=== PATIENT | female | born 1970 | race Caucasian/White ===

== ENCOUNTER → 2020-11-04 09:38 | Outpatient (BNVA) | payer OTHER, SELFPAY | PROVIDERS: Family Provider Nurse Practitioner Family; Visit Provider Surgery | DX: Z20.822 Contact with and (suspected) exposure to COVID-19 (principal); Z11.52 Encounter for screening for COVID-19 | CPT/HCPCS: 87635 ==

== ENCOUNTER 2020-11-10 10:16 | Day surgery (SDC) | payer OTHER, SELFPAY ==
[2020-11-09 10:03] VITALS: BMI 24.0
--- NOTE | 2020-11-10 10:41 | ANES.PREANE2 ---
Pre-Anesthetic Assessment Pre-Anesthetic Assessment: Height/Weight: Height 1.63 m Weight 63.503 kg Proposed Procedure: Operation Date: 11/10/20 12:00 Proposed Procedures p Colonoscopy 00805 Z80.0(Not Applicable) - Paulie Rhoades MD Was Beta Veena taken within 24 hours: N/A Was Clonidine taken within 24 hours: N/A Social: Social History: No alcohol and No tobacco Exam: Pre-Anes Outpt Exam: alert, oriented x 3, clear to auscultation bilaterally and regular rate & rhythm Airway: Submandibular: WNL Cervical ROM: WNL MP: 2 Dentition: Full History/ROS: No significant history except as noted Anesthetic Plan: ASA status: 1 Anesthesia: MAC Risk of > 500 ml blood loss (7ml/kg in children): No Data Anesthesia Cardiac Studies: No Data to Display
[2020-11-10 10:51] VITALS: BP 111/71; PULSE 74; RESP 18; TEMP 36.3; O2SAT 97
[2020-11-10] MEDS: sodium chloride 0.9% 1,000 ML 30 ML IV (11:14)
--- NOTE | 2020-11-10 11:22 | W.PM.OPSFHP ---
Same Day Surgery H&P Indication for Procedure/HPI DATE OF PROCEDURE: November 10, 2020 CHIEF COMPLAINT/INDICATIONFOR SURGICAL PROCEDURE: screening PREOP DIAGNOSIS: screening colonoscopy PLANNED PROCEDRUE: Operation Date: 11/10/20 12:00 Proposed Procedures p Colonoscopy 06929 Z80.0(Not Applicable) - Paulie Rhoades MD Medications/Allergies* Home Medications Medication Instructions Recorded Confirmed Type Lactobacillus acidophilus 1,000 mmu cells PO DAILY 11/08/20 11/10/20 History [Acidophilus] ascorbic acid (vitamin C) [Vitamin 500 mg PO DAILY 11/08/20 11/10/20 History C] calcium phos,dibas-vitamin D3 2 tab PO DAILY 11/08/20 11/10/20 History [Vitamin D (with calcium)] ibuprofen 800 mg PO TID 11/08/20 11/10/20 History zinc 10 mg PO DAILY 11/08/20 11/10/20 History Allergies/Adverse Reactions Allergy/AdvReac Type Severity Reaction Status Date / Time Penicillins Allergy Unknown Verified 10/25/20 09:56 Current Medications: Generic Name Dose Route Start Last Admin Trade Name Freq PRN Reason Stop Dose Admin Sodium Chloride 1,000 mls @ 30 mls/hr 11/10/20 10:45 11/10/20 11:14 Sodium Chloride 0.9% IV 11/11/20 10:44 30 mls/hr .Q24H DUC Administration Pertinent Exam Findings alert, oriented x 3 and regular rate & rhythm Recommendations Surgery/Procedure today Coding Level of Care Code Acute [place] [employer] Operator for Kadi Dennis
[2020-11-10 13:26] VITALS: BP 106/70; PULSE 81; RESP 14; TEMP 36.1; O2SAT 98
[2020-11-10 13:38] VITALS: BP 110/70; PULSE 78; RESP 18; O2SAT 97
--- NOTE | 2020-11-10 14:41 | ANE.PACU2 ---
Inpatient post-anesthesia follow up: Airway intact: Yes Vital signs: Temperature 97 F Pulse Rate 78 Respiratory Rate 18 Blood Pressure 110/70 Pulse Oximetry 97 Oxygen Delivery Me thod Room Air Oxygen Flow Rate 3 Fraction of Inspir ed Oxygen Hydration adequate: Yes Nausea and vomiting: No Pain level: 1 Mental status: Baseline
== END 2020-11-10 13:50 | disposition home or self-care (01) ==
PROVIDERS: Visit Provider Surgery
PROC: 0DJD8ZZ Inspection of Lower Intestinal Tract, Via Natural or Artificial Opening Endoscopic (ICD-10-PCS; CPT 45378; principal; 2020-11-10 12:00)
DX: Z12.11 Encounter for screening for malignant neoplasm of colon (principal); Z80.0 Family history of malignant neoplasm of digestive organs; K57.30 Diverticulosis of large intestine without perforation or abscess without bleeding
CPT/HCPCS: 45378; 96360; 96361; J2704; J7030

== ENCOUNTER → 2020-11-15 08:47 | Outpatient (BNVA) | payer OTHER, SELFPAY | PROVIDERS: Visit Provider Nurse Practitioner | DX: Z20.822 Contact with and (suspected) exposure to COVID-19 (principal); R05 Cough | CPT/HCPCS: 87635 ==

== ENCOUNTER 2021-05-30 12:11 | Outpatient (CLI) | payer OTHER, SELFPAY ==
--- NOTE | 2021-05-30 12:19 | XR_ITS ---
WS: [email or web address] Lumbar spine, 3 views, 05/30/2021 Clinical Data: M54.9 - Dorsalgia, unspecified, MOB Comparison: None. Findings: No compression fractures or subluxation is seen. No disc space narrowing is seen. The transverse proc esses and SI joints are normal. There is a slight levoscoliosis. XR/XR lumbar spine 2-3V* [id number] Impression: Minimal levoscoliosis of the lumbar spine.
--- NOTE | 2021-05-30 12:19 | XR_ITS ---
WS: [email or web address] Thoracic spine, 3 views, 05/30/2021 Clinical Data: M54.9 - Dorsalgia, unspecified, MOB Comparison: None. Findings: No compression fractures are seen. The disc heights are normal. There is a slight dextroscoliosis. The paravertebral regions are normal. XR/XR thoracic spine 3V* [id number] Impression: Minimal dextroscoliosis of the thoracic spine.
== END 2021-05-30 12:12 | disposition home or self-care (01) ==
LOC: RAD 12:15
PROVIDERS: PCP Nurse Practitioner; Visit Provider Nurse Practitioner
DX: M41.84 Other forms of scoliosis, thoracic region (principal); M41.86 Other forms of scoliosis, lumbar region
CPT/HCPCS: 72072; 72100

== ENCOUNTER → 2021-08-22 08:40 | Outpatient (BNVA) | payer OTHER, SELFPAY | PROVIDERS: PCP Nurse Practitioner; Visit Provider Nurse Practitioner | DX: M79.10 Myalgia, unspecified site (principal); R42 Dizziness and giddiness | CPT/HCPCS: 80053 ==

== ENCOUNTER 2021-09-16 13:07 | Outpatient (CLI) | payer OTHER, SELFPAY ==
--- NOTE | 2021-09-16 14:00 | MR_ITS ---
WS: [id number] MRI LUMBAR SPINE NONCONTRAST HISTORY: M54.9 - Dorsalgia, unspecified, trauma October 2020. Low back pain down LEFT leg. COMPARISON: None available. TECHNIQUE: Sagittal and axial multisequence imaging is submitted. Posterior lumbar alignment is normal. Mild levoscoliosis. Increased T2 signal and low T1 signal in th e adjacent endplates of L5 and S1. No acute fracture. Very mild disc desiccation at L4-5 and L5-S1. Conus terminates normally at L2. L1-L2: Normal. L2-L3: Normal. L3-L4: Normal. L4-L5: Very minimal disc bulging and hypertrophic osteophytic ridging. Small amount of ligamentum fla vum hypertrophy. No stenosis. L5-S1: Central moderate-sized disc protrusion deforming the ventral thecal sac and mild contact on th e sacral nerve root on the LEFT. Additional very small LEFT foraminal disc protrusion causing mild LE FT foraminal narrowing with minimal encroachment upon the LEFT L5 nerve root in the foramen Paravertebral soft tissues are negative. MR/MR lumbar spine wo con* [id number] IMPRESSION: 1. Moderate central disc protrusion at L5-S1 with minimal encroachment into th e lateral recesses and contacting the left-sided sacral nerve root. 2. Small disc protrusion LEFT foramen of L5-S1 with slight contact on the RIGH T L5 nerve root. 3. Moderate reactive marrow edema in the adjacent endplates of L5-S1. 4. No fractures.
== END 2021-09-16 13:08 | disposition home or self-care (01) ==
PROVIDERS: PCP Nurse Practitioner; Visit Provider Nurse Practitioner
DX: M51.27 Other intervertebral disc displacement, lumbosacral region (principal)
CPT/HCPCS: 72148

== ENCOUNTER → 2021-11-30 14:29 | Outpatient (BNVA) | payer OTHER, SELFPAY | PROVIDERS: PCP Nurse Practitioner; Visit Provider Nurse Practitioner | DX: R53.83 Other fatigue (principal); E55.9 Vitamin D deficiency, unspecified | CPT/HCPCS: 80053; 82306; 82607; 84439; 84443; 84481; 85025 ==

== ENCOUNTER → 2022-08-07 08:06 | Outpatient (BNVA) | payer OTHER, SELFPAY | PROVIDERS: PCP Nurse Practitioner; Visit Provider Nurse Practitioner | DX: R05.9 Cough, unspecified (principal) | CPT/HCPCS: 71046 ==

== ENCOUNTER 2022-08-21 14:16 | Outpatient (CLI) | payer OTHER, SELFPAY ==
--- NOTE | 2022-08-21 14:28 | MM_ITS ---
WS: [email or web address] BILATERAL 3D TOMOSYNTHESIS DIGITAL SCREENING MAMMOGRAPHY WITH CAD CLINICAL INFORMATION: Z12.39 - Encounter for other screening for malignant neop... HISTORY: Screening mammogram. No current complaints. COMPARISON: 2012 TECHNIQUE: Bilateral CC and MLO views. FINDINGS: The breasts are composed of heterogeneous fibroglandular density tissue, which can limit the detectio n of small underlying mass lesions. Ovoid nodular asymmetric density deep to the areola RIGHT breast in the cc view measuring 6 mm. This is difficult to visualize on the other views. Recommend RIGHT niru gnostic mammography and ultrasound if persistent. LEFT breast is unremarkable. MM/[place] [id number] IMPRESSION: BI-RADS: 0-Incomplete: Need additional imaging evaluation FOLLOW UP: Need Additional Imaging Recommend RIGHT diagnostic mammography with spot compression views and ultrasou nd if persistent.
== END 2022-08-21 14:17 | disposition home or self-care (01) ==
LOC: RAD 14:20
PROVIDERS: PCP Nurse Practitioner; Visit Provider Nurse Practitioner
DX: Z12.31 Encounter for screening mammogram for malignant neoplasm of breast (principal)
CPT/HCPCS: 71046; 77063; 77067

== ENCOUNTER 2022-09-13 12:44 | Outpatient (CLI) | payer OTHER, SELFPAY ==
--- NOTE | 2022-09-13 13:06 | MM_ITS ---
WS: [email or web address] RIGHT 3D TOMOSYNTHESIS DIGITAL MAMMOGRAPHY WITH CAD CLINICAL INFORMATION: R92.8 - Other abnormal and inconclusive findings on diagn... HISTORY: Additional views COMPARISON: August 21, 2022 TECHNIQUE: 2 views of the right breast were obtained. FINDINGS: The right breast is composed of heterogeneous fibroglandular density tissue, which can limit the dete ction of small underlying mass lesions. Stable ovoid nodular density deep to the areola measuring 6 m m. Ultrasound described below. ULTRASOUND BREAST RIGHT TECHNIQUE: Ultrasound right breast focused area of concern. CLINICAL INFORMATION: R92.8 - Other abnormal and inconclusive findings on diagn... FINDINGS: Ultrasound RIGHT breast posterior to the nipple. Lobulated simple appearing cyst posterior the nipple measuring 10 x 7 x 7 mm. A few incidental dilated ducts. No other suspicious lesions. No lesions to target for biopsy. Recommend return to annual screening mammography. MM/[place] [id number] IMPRESSION: BI-RADS: 2-Benign FOLLOW UP: 1 Year Follow-up Recommend return to annual screening mammography.
--- NOTE | 2022-09-13 13:30 | US_ITS ---
WS: [email or web address] RIGHT 3D TOMOSYNTHESIS DIGITAL MAMMOGRAPHY WITH CAD CLINICAL INFORMATION: R92.8 - Other abnormal and inconclusive findings on diagn... HISTORY: Additional views COMPARISON: August 21, 2022 TECHNIQUE: 2 views of the right breast were obtained. FINDINGS: The right breast is composed of heterogeneous fibroglandular density tissue, which can limit the dete ction of small underlying mass lesions. Stable ovoid nodular density deep to the areola measuring 6 m m. Ultrasound described below. ULTRASOUND BREAST RIGHT TECHNIQUE: Ultrasound right breast focused area of concern. CLINICAL INFORMATION: R92.8 - Other abnormal and inconclusive findings on diagn... FINDINGS: Ultrasound RIGHT breast posterior to the nipple. Lobulated simple appearing cyst posterior the nipple measuring 10 x 7 x 7 mm. A few incidental dilated ducts. No other suspicious lesions. No lesions to target for biopsy. Recommend return to annual screening mammography. US/US breast RT limited* [id number] IMPRESSION: BI-RADS: 2-Benign FOLLOW UP: 1 Year Follow-up Recommend return to annual screening mammography.
== END 2022-09-13 12:45 | disposition home or self-care (01) ==
PROVIDERS: PCP Nurse Practitioner; Visit Provider Nurse Practitioner
DX: R92.8 Other abnormal and inconclusive findings on diagnostic imaging of breast (principal)
CPT/HCPCS: 76642; 77061; G0279

== ENCOUNTER → 2025-03-01 08:24 | Outpatient (BNVA) | payer BC, MEDICAID, SELFPAY | PROVIDERS: PCP Nurse Practitioner; Visit Provider Nurse Practitioner | DX: M54.9 Dorsalgia, unspecified (principal) | CPT/HCPCS: 72040; 72072; 72100 ==